=== PATIENT | female | born 1950 | race Caucasian/White ===

== ENCOUNTER 2017-06-06 12:03 | Observation (INO) | payer MEDICARE, BC ==
[2017-06-06 12:22] LABS: #Eosinphils 0.3 thou/uL (0.0-0.7); #Monocytes 0.6 thou/uL (0.11-0.59); #Neutrophils 5.5 thou/uL (1.40-6.50); %Basophils 0.5 % (0.0-1.0); %Eosinophils 4.6 % (0.0-10.0); %Lymphocytes 13.5 % (21.0-51.0); %Monocytes 7.8 % (0.0-10.0); Hematocrit 43.5 % (36.0-47.0); Red Blood Cell (RBC) Count 4.49 mill/uL (4.20-5.40); White Blood Cell (WBC) Count 7.5 thou/uL (4.8-10.8)
[2017-06-06 12:48] LABS: ALT (SGPT) 22 U/L (8-55); AST (SGOT) 20 U/L (5-34); Alkaline Phosphatase 80 U/L (40-150); Anion Gap 13 mmol/L (10-20); BUN (Urea Nitrogen) 27 mg/dL (9.8-20.1); Bilirubin, Total 1.4 mg/dL (0.2-1.2); CK (CPK) 58 U/L (29-168); Calc. Creatinine Clearance 0 mL/min (70-130); Calcium 9.6 mg/dL (7.8-10.44); Carbon Dioxide 30 mmol/L (23-31); Chloride 98 mmol/L (98-107); Estimated GFR-MDRD 70; Globulin 3.1 g/dL (2.4-3.5); Protein, Total 7.4 g/dL (6.0-8.3)
[2017-06-06 12:54] LABS: Troponin I Less than 0.010 ng/mL (< 0.028)
[2017-06-06] MEDS ORDERED: Ondansetron HCl/PF 4 MG/2 ML Vial IVP PRN ×2 (16:20→16:26)
[2017-06-06] MEDS ORDERED: Acetaminophen 325 MG TAB PO PRN ×2 (16:20→16:26)
[2017-06-06] MEDS ORDERED: Ondansetron ODT 4 MG TAB SL PRN (16:20)
[2017-06-06] MEDS ORDERED: Eucerin (Mineral Oil/Petrolatum,White) 30 gm Jar TOP PRN (16:26)
[2017-06-06] MEDS ORDERED: Nitroglycerin 0.4 MG TAB (25 Tab Bottle) SL PRN (16:26)
[2017-06-06] MEDS ORDERED: Loperamide HCl 2 MG CAP PO PRN (16:26)
[2017-06-06] MEDS ORDERED: Milk Of Magnesia 30 ML UDCUP PO PRN (16:26)
[2017-06-06] MEDS ORDERED: Ondansetron ODT 4 MG TAB PO PRN (16:26)
[2017-06-06] MEDS ORDERED: Artificial Tears 18 DROP/0.9 ML EA EYE PRN (16:26)
[2017-06-06] MEDS ORDERED: Sodium Chloride 0.65% Nasal 44 ML BOT EA NARE PRN (16:26)
[2017-06-06] MEDS ORDERED: Diabetic Tussin 200 MG/10 ML UDCUP PO PRN (16:26)
[2017-06-06] MEDS ORDERED: Senokot 8.6 MG TAB PO PRN (16:26)
[2017-06-06] MEDS ORDERED: Mag-Al 1200 mg/1200 mg/30 ML UDCUP PO PRN (16:26)
[2017-06-06] MEDS ORDERED: Loratadine 10 MG TAB PO PRN (16:26)
[2017-06-06] MEDS ORDERED: Zolpidem Tartrate 5 MG TAB PO PRN (16:26)
[2017-06-06 16:27] VITALS: BMI 27.4
--- NOTE | 2017-06-06 16:27 | HP ---
PRIMARY CARE PHYSICIAN: Dr. Fatimah Bueno. REASON FOR ADMISSION: Palpitations frequent PVC. HISTORY OF PRESENT ILLNESS: A 66-year-old female who has history of ventricular arrhythmia. She came to the emergency room for complaint of palpitation. Patient reports that for the last 5 days, she is feeling increasing palpitations. She is feeling near syncopal episode with walking. She is able to experience her fluttering sensation in her heart. She was also experiencing associated difficulty breathing and vague chest discomfort. The patient denies any angina. Patient denies any loss of consciousness. She denies any fall. She denies any trauma. She denies any orthopnea, PND or leg swelling. Patient reports that whenever she was checking her pulse at home with a blood pressure machine. At that time, her pulse was running in the 40s, but at the same time, she was also feeling her skipped beats. Her blood pressure was remaining normal. Lately, patient lost almost 25 pounds intentionally with diet and exercise. She denies any fever or chills. She denies any constipation , diarrhea or UTI symptoms. She denies any headache. The patient reports that she has history of frequent PVCs and ventricular arrhythmia and that is why she required ablation by Dr. Mitchell in [place]. Patient is following Dr. Quezada 5 months ago[address] She saw Dr. Quezada, at that time everything was fine, but symptoms started 5 days ago. She denies any caffeinated product. REVIEW OF SYSTEMS: The following complete review of systems was negative, unless otherwise mentioned in the HPI or below: CONSTITUTIONAL: Weight loss or gain, ability to conduct usual activities. SKIN: Rash, itching. EYES: Double vision, pain. ENT/MOUTH: Nose bleeding, neck stiffness, pain, tenderness. CARDIOVASCULAR: Palpitations, dyspnea on exertion, orthopnea. RESPIRATORY: Shortness of breath, wheezing, cough, hemoptysis, fever or night sweats. GASTROINTESTINAL: Poor appetite, abdominal pain, heartburn, nausea, vomiting, constipation, or diarrhea. GENITOURINARY: Urgency, frequency, dysuria, nocturia. MUSCULOSKELETAL: Pain, swelling. NEUROLOGIC/PSYCHIATRIC: Anxiety, depression. ALLERGY/IMMUNOLOGIC: Skin rash, bleeding tendency. Please see my HPI for pertinent positives and negatives. All other review of systems reviewed and negative except as mentioned in the HPI. PAST MEDICAL HISTORY: Unspecified arrhythmia, hypertension, dyslipidemia, obesity. PAST SURGICAL HISTORY: Ablation for arrhythmia, gastric surgery for hiatal hernia, breast implants, toe surgery. PAST PSYCHIATRIC HISTORY: Anxiety and depression. CURRENT HOME MEDICATIONS: Pravastatin 80 mg p.o. at bedtime, estradiol 1 mg p.o. daily, Aldactone 25 mg p.o. daily, Prozac 40 mg p.o. daily, losartan 25 mg p.o. daily, [place] Thyroid one tablet daily, Coreg 6.25 mg twice daily. FAMILY HISTORY: No strong family history of premature coronary artery disease, stroke or cancer. SOCIAL HISTORY: Patient denies any tobacco, alcohol or drug abuse. ALLERGIES: CODEINE, SULFATE, INFLUENZA VACCINE. EMERGENCY ROOM COURSE: Reviewed. PHYSICAL EXAMINATION: VITAL SIGNS: Currently, blood pressure 134/80, pulse 72, respiratory rate 16, temperature 97.6, saturation 100% on room air. Weight 78.4 kilograms. GENERAL: Patient is currently alert, awake, no obvious acute distress. HEAD: Normocephalic, atraumatic. EYES: Pupils round, reactive to light. Extraocular muscle intact. ENT: Oropharynx within normal limits. Moist mucous membranes. No oral lesions. No pharyngeal erythema, no exudate. NECK: Supple. Range of motion is normal. No meningeal signs of irritation. LUNGS: Clear to auscultation without any rhonchi or rales. CARDIAC: S1, S2 regular without any murmur. ABDOMEN: Soft, bowel sounds present, nontender, nondistended. No organomegaly , no mass, no suprapubic tenderness. BACK: Unremarkable, no CVA tenderness. EXTREMITIES: Upper extremity: Passive movement of all joints are normal. Lower extremity: No edema. Good peripheral pulsation. SKIN: No skin rash. HEMATOLOGICAL: No lymphadenopathy. PSYCHIATRIC: Normal affect. SIGNIFICANT LABS: EKG based on my review, normal sinus rhythm. Frequent premature ventricular complexes, nonspecific ST-T changes. CBC: WBC 7.5, hemoglobin 14.8, platelet 295. BMP: Sodium 137, potassium 4.4, chloride 98, carbon dioxide 30, BUN 27, creatinine 0.81, calcium 9.6, AST 20, ALT 22, alkaline phosphatase 80. CK 58, CK-MB 1.6, troponin I less than 0.010, BNP 129.9, albumin 4.3. ASSESSMENT AND PLAN/IMPRESSION: 1. Palpitation. The patient's palpitation is most likely related with underlying frequent premature ventricular complexes. At this point, the patient is already on Coreg 6.25 mg twice daily, which we will continue while in hospital. We will do serial cardiac enzymes to rule out acute coronary syndrome. We will check thyroid function test. We will monitor on telemetry floor for any kind of arrhythmias. 2. Frequent premature ventricular complexes. Patient will continue beta marcio therapy. We will check magnesium level to rule out underlying ischemia. We will perform exercise Cardiolite stress test. We will consult Cardiology. We will obtain echocardiography. Meanwhile, we will continue with aspirin 325 mg p.o. daily. 3. History of cardiomyopathy. Currently, BNP is elevated. The patient is taking Lasix, Aldactone therapy. Currently, patient is euvolemic. We will obtain echocardiography to assess ejection fraction and other structural abnormality. 4. History of hypertension, currently well controlled. If blood pressure permits, then we will continue losartan 25 mg p.o. daily. 5. Dyslipidemia. We will check lipid profile tomorrow and continue pravastatin 80 mg p.o. at bedtime. 6. Anxiety and depression. We will continue Prozac 40 mg p.o. daily. 7. Near syncope/dizziness likely related with symptomatic premature ventricular complexes and arrhythmia. We will monitor on telemetry floor. We are obtaining an echocardiography. We are ruling out acute coronary syndrome and will also do stress test for ischemic workup. Cardiology will be consulted. We will monitor on telemetry floor. 8. Deep venous thrombosis prophylaxis not needed because we are expecting discharge in 24 hours. 9. Gastrointestinal prophylaxis, Pepcid 20 mg p.o. b.i.d. 10. CODE STATUS: The patient is FULL CODE. Patient does not have any surrogate decision maker. Disposition plan based on clinical course, likely 24 hours. Plan of care discussed with the patient and family member at bedside in the emergency room. YOUNG
[2017-06-06 17:14] LABS: Troponin I 0.019 ng/mL (< 0.028)
--- NOTE | 2017-06-06 19:23 | RAD ---
PORTABLE CHEST: 06/06/17 HISTORY: Heart palpitation and difficulty breathing. COMPARISON: 01/06/16. FINDINGS: The lungs are clear. No evidence of infiltrate or vascular congestion. Heart size is upper normal. IMPRESSION: No acute lung process. POS: [facility]
[2017-06-06 19:28] LABS: Troponin I 0.014 ng/mL (< 0.028)
[2017-06-06] MEDS: Pravastatin Sodium 40 MG TAB PO SCH (21:03)
[2017-06-06] MEDS: Losartan Potassium 25 MG TAB PO SCH (21:03)
[2017-06-06] MEDS: Famotidine 20 MG TAB PO SCH (21:03)
[2017-06-06] MEDS: FLUoxetine HCl 20 MG CAP PO SCH (21:04)
[2017-06-07] MEDS ORDERED: Aspirin 325 MG TAB PO SCH (09:00)
[2017-06-07] MEDS: Famotidine 20 MG TAB PO SCH ×2 (09:49→20:44)
[2017-06-07] MEDS: Spironolactone 25 MG TAB PO SCH (09:49)
[2017-06-07] MEDS: Estradiol 1 MG TAB PO SCH (09:49)
--- NOTE | 2017-06-07 18:05 | PDOC.PN ---
- Subjective Encounter Start Date: 06/07/17 Encounter Start Time: 15:00 Patient seen and examined. No new complaints. No overnight events. Palpitations intermittent - improving. - Objective Resuscitation Status: Resuscitation Status FULL:Full Resuscitation MAR Reviewed: Yes Vital Signs & Weight: Vital Signs (12 hours) Temp Pulse Resp BP Pulse Ox 06/07/17 15:15 97.7 F 61 16 111/66 93 L 06/07/17 11:05 98.6 F 56 L 16 117/72 98 06/07/17 07:55 97.7 F 73 14 06/07/17 07:38 97.4 F L 60 16 104/71 96 Weight Weight 175 lb 6.4 oz I&O: 06/06/17 06/07/17 06/08/17 06:59 06:59 06:59 Intake Total 850 Balance 850 Result Diagrams: 06/06/17 12:13 06/06/17 12:13 EKG Reviewed by me: Yes (Tele SR/PVCs) Phys Exam - Physical Examination Constitutional: NAD Respiratory: no wheezing, no rhonchi Cardiovascular: RRR, no rub Gastrointestinal: soft, non-tender, positive bowel sounds Musculoskeletal: no edema Neurological: non-focal, moves all 4 limbs Dx/Plan (1) Palpitations Code(s): R00.2 - PALPITATIONS Status: Acute (2) Nonischemic cardiomyopathy Code(s): I42.8 - OTHER CARDIOMYOPATHIES Status: Chronic (3) Chronic systolic (congestive) heart failure Code(s): I50.22 - CHRONIC SYSTOLIC (CONGESTIVE) HEART FAILURE Status: Chronic (4) HTN (hypertension) Code(s): I10 - ESSENTIAL (PRIMARY) HYPERTENSION Status: Chronic (5) Dyslipidemia Code(s): E78.5 - HYPERLIPIDEMIA, UNSPECIFIED Status: Acute (6) Other issues per previous notes - Plan cont current plan of care, DVT proph w/SCDs * Await Echo/EP input * Patient is at risk of life threatening arrhythmias due to history of cardiomyopathy. * Cont current meds as below * Cont to monitor * DC home once cleared by EP Review of Systems - Review of Systems Respiratory: negative: Cough, Dry, Shortness of Breath, Hemoptysis, SOB with Excertion, Pleuritic Pain, Sputum, Wheezing Cardiovascular: negative: Chest Pain, Palpitations, Orthopnea, Paroxysmal Noc. Dyspnea, Edema, Light Headedness, Other Gastrointestinal: negative: Nausea, Vomiting, Abdominal Pain, Diarrhea, Constipation, Melena, Hematochezia, Other - Medications/Allergies Allergies/Adverse Reactions: Allergies Allergy/AdvReac Type Severity Reaction Status Date / Time codeine Allergy Nausea Verified 12/30/15 13:23 influenza virus vaccine ts Allergy Verified 12/30/15 17:13 [From Fluarix] Medications: Current Medications Acetaminophen (Tylenol) 650 mg PO Q4H PRN PRN Reason: Headache/Fever or Pain Al Hydroxide/Mg Hydroxide (Maalox) 30 ml PO Q6H PRN PRN Reason: Heartburn or Indigestion Artificial Tears (Tears Naturale) 0 drop EA EYE PRN PRN PRN Reason: Dry Eyes Aspirin (Ecotrin) 81 mg PO DAILY [facility] Estradiol (Estrace) 1 mg PO DAILY [facility] Last Admin: 06/07/17 09:49 Dose: 1 mg Famotidine (Pepcid) 20 mg PO BID [facility] Last Admin: 06/07/17 09:49 Dose: 20 mg Flecainide Acetate (Tambocor) 100 mg PO Q12HR [facility] Flecainide Acetate (Tambocor) 100 mg PO 1900 [facility] Stop: 06/07/17 21:00 Fluoxetine HCl (Prozac) 40 mg PO DAILY [facility] Last Admin: 06/06/17 21:04 Dose: 40 mg Guaifenesin (Robitussin Sf) 200 mg PO Q4H PRN PRN Reason: Cough Hydralazine HCl (Apresoline) 10 mg SLOW IVP Q4H PRN PRN Reason: Systolic BP > 180 Loperamide HCl (Imodium) 2 mg PO PRN PRN PRN Reason: Diarrhea/Loose Stools Loratadine (Claritin) 10 mg PO DAILYPRN PRN PRN Reason: Sinus Symptoms Losartan Potassium (Cozaar) 25 mg PO DAILY [facility] Last Admin: 06/06/17 21:03 Dose: 25 mg Magnesium Hydroxide (Milk Of Magnesium) 30 ml PO DAILYPRN PRN PRN Reason: Constipation Mineral Oil/White Petrolatum (Eucerin Cream) 0 gm TOP BIDPRN PRN PRN Reason: Dry Skin Nitroglycerin (Nitrostat) 0.4 mg SL Q5MIN PRN PRN Reason: Chest Pain Ondansetron HCl (Zofran Odt) 4 mg PO Q6H PRN PRN Reason: Nausea/Vomiting Ondansetron HCl (Zofran) 4 mg IVP Q6H PRN PRN Reason: Nausea/Vomiting Pravastatin Sodium (Pravachol) 80 mg PO [facility] Last Admin: 06/06/17 21:03 Dose: 80 mg Senna (Senokot) 2 tab PO HSPRN PRN PRN Reason: Constipation Sodium Chloride ([place] Nasal [place] 0.65%) 0 ml EA NARE QIDPRN PRN PRN Reason: Nasal Congestion Spironolactone (Aldactone) 25 mg PO QA-[facility] Last Admin: 06/07/17 09:49 Dose: 25 mg Zolpidem Tartrate (Ambien) 5 mg PO HSPRN PRN PRN Reason: Insomnia
[2017-06-07] MEDS: Pravastatin Sodium 40 MG TAB PO SCH (20:44)
--- NOTE | 2017-06-08 06:12 | CON ---
ELECTROPHYSIOLOGY CONSULTATION REPORT DATE OF CONSULTATION: 06/07/2017 REFERRING PHYSICIANS: Dr. Lawson and Dr. Quezada. I am seeing Ms. Mitchell at our [facility] telemetry floor as an electrophysiology consultan t. Her problems are: 1. Highly symptomatic PVCs. A. Presentation with near syncopal spells and bigeminy and trigeminy PVCs documented at telemetry. B. Monomorphic PVCs on the EKG shows bigeminy with a right bundle left axis in morphology. 2. Prior history of PVCs, status post mitral annular PVC ablation by Dr. Troy in 05/2013, four s years ago. At that point, a different morphology with the inferior axis was seen. 3. Prior history of cardiomyopathy thought to be related to the frequent PVCs, but LVEF has normali zed on the echocardiogram mostly seen in 10/2015 with LVEF of 55%. No significant valvular heart di sease. A. Left heart catheterization on 08/2012 reveals normal coronary arteries. LVEF at that time was 3 0% to 35% and again normalized at a later date. 4. Coronary artery risk factors including hyperlipidemia and hypertension. ALLERGIES: CODEINE and INFLUENZA VIRUS VACCINE. HOME MEDICATIONS: Included pravastatin 80 mg a day, estradiol, spironolactone 25 mg daily, fluoxeti ne, losartan, Nature-Throid 48.75 mg and carvedilol 6.25 mg. SUBJECTIVE: Ms. Mitchell is here with symptoms of recurrent palpitations. She says it started on about a week ago. She has intermittent palpitations that eventually made her so dizzy and h ad to lay down. She nearly passed out according to her, but there is no full loss of consciousness. She denied any chest pain associated with this. No significant dizziness, no loss of consciousnes s noted. No fever, chills or cough. No stroke-like symptoms, no other intercurrent illnesses are d ocumented. Rest of the 12-point review of systems otherwise unremarkable. PAST MEDICAL HISTORY: As above. SOCIAL HISTORY: Patient denies smoking, EtOH or drug abuse. FAMILY HISTORY: Noncontributory. OBJECTIVE DATA: VITAL SIGNS: Blood pressure is 111/66, heart rate 61, respirations 16 and temperature 97.7 degrees Fahrenheit. GENERAL: She is an alert and oriented woman in no apparent distress. NECK: Supple. Jugular veins not distended. CHEST: Coarse without crackles. CARDIOVASCULAR: Heart sounds are regular to rate and rhythm. No murmur or gallop. ABDOMEN: Benign. Bowel sounds positive. EXTREMITIES: Lower extremities without edema, clubbing or cyanosis. Pulses adequate. NEUROLOGIC: Patient is nonfocal. MUSCULOSKELETAL: No joint swelling or deformities. SKIN: Without rash. DATABASE: EKG today reveals sinus rhythm with bigeminy and PVCs documented, which are monomorphic, right bundle left axis in morphology. The chest x-ray was negative. Telemetry shows bigeminy and t rigeminy, now decreasing in frequency. ASSESSMENT AND PLAN: Ms. Mitchell is a pleasant 66-year-old woman with a prior history of cardiomyop athy, left ventricular ejection fraction was reduced at 30% to 35% by catheterization in 2012, but m ore recently in 2016, her left ventricular ejection fraction has normalized. She never had a histor y of coronary artery disease. She is now presenting with recurrent palpitations, correlating to big eminy and trigeminy premature ventricular complexes. She is highly symptomatic with that. I discussed the treatment options. Increasing beta-marcio or calcium channel blockers are likely n ot an option as blood pressure is in the borderline. On the other hand, adding an antiarrhythmic ag ent like flecainide could be a reasonable consideration. I will schedule for that. Also, we could consider a repeat radiofrequency ablation for PVCs. These were discussed with her; she will monitor her for initiation of the antiarrhythmic regimen. I will follow with you. Thank you again for allowing me to participate in the care of this patient.
[2017-06-08] MEDS ORDERED: Aspirin 81 mg Enteric Coated Tablet PO SCH (09:00)
[2017-06-08] MEDS: Estradiol 1 MG TAB PO SCH (10:03)
[2017-06-08] MEDS: Spironolactone 25 MG TAB PO SCH (10:03)
[2017-06-08] MEDS: Famotidine 20 MG TAB PO SCH (10:03)
[2017-06-08] MEDS: Losartan Potassium 25 MG TAB PO SCH (10:04)
[2017-06-08] MEDS: FLUoxetine HCl 20 MG CAP PO SCH (10:04)
[2017-06-08] MEDS ORDERED: Carvedilol 3.125 MG TAB PO SCH (11:45)
--- NOTE | 2017-06-08 13:34 | DIS ---
DATE OF DISCHARGE: 06/08/2017 DISCHARGE DISPOSITION: Home. FOLLOWUP: 1. Follow up with primary care physician, Dr. Bueno in 1 week. 2. Follow up with Cardiology, Dr. Quezada and Electrophysiology, Dr. Mercado in 1 week. Event monitor will be arranged by Electrophysiology. ALLERGIES: Patient is allergic to CODEINE and INFLUENZA VACCINE. DISCHARGE MEDICATIONS: Pravastatin 80 mg at bedtime, calcium 1000 mg b.i.d., Coreg 3.125 mg b.i.d., vitamin D3 2000 units daily, estradiol 1 mg daily, fluoxetine 40 mg at bedtime, flecainide 100 mg b .i.d. (new medication). Please note that Coreg dose was reduced to 3.125 b.i.d. Losartan 25 mg at bedtime, Aldactone 25 mg daily, thyroid (pork) 48.75 mg daily. INPATIENT CONSULTANTS: 1. Cardiology, Dr. Quezada. 2. Electrophysiology, Dr. Mercado. BRIEF HOSPITAL COURSE: Patient is a 66-year-old female with nonischemic cardiomyopathy, hypertensio n, and dyslipidemia, who presented to the hospital with palpitations. Please refer to the history a nd physical for further details. The patient was admitted to the hospital with a diagnosis of palpitations of unclear etiology. Tamara ent was evaluated by Cardiology and Electrophysiology. Repeat echocardiogram has been done and repo rt is pending at this time. Patient will be discharged later today once cleared by Cardiology and E lectrophysiology. Flecainide was started due to frequent PVCs. Coreg dose was reduced to 3.125 b.i .d. An event monitor will be arranged per Electrophysiology. SIGNIFICANT LABORATORY DATA: Fasting lipid showed triglyceride 184, cholesterol 166, HDL of 58, LDL 71. CBC showed WBC 7.5 with hemoglobin 14.8. Creatinine was 0.81, magnesium was 2.1. TSH was 1.4 8. FINAL DIAGNOSES: 1. Palpitations secondary to arrhythmias. The patient had frequent premature ventricular contracti ons on the monitor. 2. Nonischemic cardiomyopathy. 3. Chronic systolic heart failure. 4. Hypertension. 5. Dyslipidemia. 6. Hypothyroidism. 7. History of ablation for arrhythmias in the past. Plan of care was discussed with the patient. She stated understanding.
[2017-06-08 16:16] VITALS: BP 127/80; TEMP 97.6
--- NOTE | 2017-06-12 13:16 | EKG ---
Test Reason : Blood Pressure : / mmHG Vent. Rate : 069 BPM Atrial Rate : 069 BPM P-R Int : 176 ms QRS Dur : 104 ms QT Int : 444 ms P-R-T Axes : 067 030 104 degrees QTc Int : 475 ms Normal sinus rhythm Non-specific intra-ventricular conduction delay Prolonged QT Abnormal ECG Confirmed by SEGUNDO HOFFMAN ([id number]) on 06/12/2017 1:16:04 PM Referred By: CATHY Confirmed By:SEGUNDO HOFFMAN
== END 2017-06-08 17:09 | disposition home or self-care (01) ==
LOC: ERS 12:03 → 2SW 16:15
PROVIDERS: ADMIT Internal Medicine; ATTEND Internal Medicine
DX: I49.9 Cardiac arrhythmia, unspecified (principal); R00.2 Palpitations; I42.8 Other cardiomyopathies; I11.0 Hypertensive heart disease with heart failure; I50.22 Chronic systolic (congestive) heart failure; E78.5 Hyperlipidemia, unspecified; E03.9 Hypothyroidism, unspecified; Z88.7 Allergy status to serum and vaccine; Z88.5 Allergy status to narcotic agent; Z79.899 Other long term (current) drug therapy; Z98.890 Other specified postprocedural states
CPT/HCPCS: 71010; 80061; 82550; 82553; 83735; 83880; 84484 ×2; 93005 ×2; 93306; 99285; G0378; 36415; 80053; 84443; 85025; 93010

== ENCOUNTER 2018-01-04 06:25 | Day surgery (SDC) | payer MEDICARE, BC ==
[2018-01-03 16:29] VITALS: BMI 29.1
[2018-01-04 08:09] LABS: #Eosinphils 0.4 thou/uL (0.0-0.7); #Lymphocytes 0.8 thou/uL (1.20-3.40); #Monocytes 0.6 thou/uL (0.11-0.59); %Basophils 0.7 % (0.0-1.0); %Eosinophils 6.2 % (0.0-10.0); %Lymphocytes 14.5 % (21.0-51.0); %Monocytes 10.2 % (0.0-10.0); %Neutrophils 68.4 % (42.0-75.0); Hemoglobin 13.3 g/dL (12.0-16.0); Mean Corpuscular Volume 94.2 fl (81.0-99.0); Mean Platelet Volume 7.2 fL (7.4-10.4); Platelet Count 291 thou/uL (130-400); RBC Distribution Width 11.7 % (11.5-14.5); Red Blood Cell (RBC) Count 4.15 mill/uL (4.20-5.40); White Blood Cell (WBC) Count 5.8 thou/uL (4.8-10.8)
[2018-01-04 08:20] LABS: INR-International Normal Ratio 2.6; PTT 42.9 SEC (22.9-36.1); Prothrombin Time 28.5 SEC (12.0-14.7)
[2018-01-04 08:31] LABS: Anion Gap 11 mmol/L (10-20); BUN (Urea Nitrogen) 16 mg/dL (9.8-20.1); Calc. Creatinine Clearance 84 mL/min (70-130); Calcium 8.9 mg/dL (7.8-10.44); Carbon Dioxide 29 mmol/L (23-31); Chloride 102 mmol/L (98-107); Estimated GFR-MDRD 67; Glucose 101 mg/dL (80-115); Potassium 4.8 mmol/L (3.5-5.1); Sodium 137 mmol/L (136-145)
[2018-01-04] MEDS ORDERED: PROPOFOL 200 MG/20 ML VIAL ONE (09:51)
--- NOTE | 2018-01-04 14:51 | OP ---
REFERRING PHYSICIAN: Foreign Quezada M.D. REASON FOR PROCEDURE: Ms. Mitchell presenting with possibly atypical flutter. She also exhibits poss ible typical atrial flutter this morning in EKG as well. She is here for a cardioversion. She is o n flecainide and recently started on Xarelto. LANETTE today demonstrates no abnormalities. PROCEDURE: The patient received propofol from an anesthesia specialist. After adequate sedation ach ieved, a synchronized 100 joule shock promptly converted the patient back to sinus rhythm. CONCLUSION: Successful cardioversion. PLAN: Continue current regimen, consider ablation at a later date.
--- NOTE | 2018-01-04 18:40 | ECHO ---
REASON FOR PROCEDURE: The patient is a pleasant 67-year-old woman with prior history of symptomatic PVCs, now presenting wi th atypical atrial flutter/coarse fibrillation. She was placed on flecainide. This mornings EKG thou gh could be consistent with a more typical atrial flutter. Here for LANETTE guided cardioversion. PROCEDURE: The patient received propofol per Anesthesia specialist. After adequate level of sedation achieved, a standard transesophageal echocardiogram probe was passed into the esophagus without difficulty. Randall fei tolerated procedure well, no complication noted. RESULTS: The left atrium is mildly enlargement 4.5 cm in horizontal diameter. Left atrial appendage visualized and contains no clots. Left atrial appendage velocities up to 50 cm per second. Four out of four pulmonary veins are well seen. The mitral valve has mild regurgitation. Left ventricular systolic function appears preserved with normal left ventricular systolic function i s seen. The left ventricular wall thickness is normal. Left ventricular size is normal. Right-sided chambers nondilated. The interatrial and intraventricular septum is free of defect. The aortic valve has three leaflets without regurgitation or stenosis. Tricuspid valve regurgitation not visualized. Pulmonary valve was no regurgitant. The pericardial space without effusion. The visualized portion of the ascending and descending aorta without aneurysm, dissection or signifi cant atheroma. CONCLUSION: 1. Normal left ventricular systolic function. 2. No intracardiac clots visualized. 3. Mild mitral regurgitation, mild left atrial enlargement. No other significant structural abnorma lity seen. PLAN: Proceed with cardioversion.
--- NOTE | 2018-01-08 18:34 | EKG ---
Test Reason : PREOP Blood Pressure : / mmHG Vent. Rate : 089 BPM Atrial Rate : 089 BPM P-R Int : 182 ms QRS Dur : 134 ms QT Int : 410 ms P-R-T Axes : 085 -27 134 degrees QTc Int : 498 ms Sinus rhythm with frequent Premature ventricular complexes Non-specific intra-ventricular conduction block T wave abnormality, consider lateral ischemia Abnormal ECG When compared with ECG of 08-JUN-2017 13:16, Premature ventricular complexes are now Present Non-specific intra-ventricular conduction block has replaced Incomplete left bundle branch block Nonspecific T wave abnormality, worse in Inferior leads Confirmed by PETR MONTEZ (2) on 01/08/2018 6:34:05 PM Referred By: CHANELLE Confirmed By:PETR MONTEZ
--- NOTE | 2018-01-08 18:34 | EKG ---
Test Reason : POST LANETTE/CARDIOVERSI Blood Pressure : / mmHG Vent. Rate : 070 BPM Atrial Rate : 070 BPM P-R Int : 208 ms QRS Dur : 126 ms QT Int : 500 ms P-R-T Axes : 071 -03 099 degrees QTc Int : 540 ms Normal sinus rhythm Non-specific intra-ventricular conduction block T wave abnormality, consider lateral ischemia Abnormal ECG When compared with ECG of 04-JAN-2018 08:00, (Unconfirmed) Premature ventricular complexes are no longer Present Nonspecific T wave abnormality, improved in Inferior leads Confirmed by PETR MONTEZ (2) on 01/08/2018 6:34:27 PM Referred By: CHANELLE Confirmed By:PETR MONTEZ
== END 2018-01-04 10:25 | disposition home or self-care (01) ==
LOC: CCL 06:25
PROVIDERS: ATTEND Internal Medicine Cardiovascular Disease
PROC: 5A2204Z Restoration of Cardiac Rhythm, Single (ICD-10-PCS; principal; 2018-01-04)
PROC: B246ZZ4 Ultrasonography of Right and Left Heart, Transesophageal (ICD-10-PCS; 2018-01-04)
DX: I48.4 Atypical atrial flutter (principal); I10 Essential (primary) hypertension; E78.5 Hyperlipidemia, unspecified; Z88.5 Allergy status to narcotic agent; Z88.7 Allergy status to serum and vaccine; Z79.82 Long term (current) use of aspirin; Z79.01 Long term (current) use of anticoagulants; Z79.899 Other long term (current) drug therapy
CPT/HCPCS: 36415; 80048; 85025; 85610; 85730; 92960; 93005; 93010; 93312; J2704

== ENCOUNTER 2018-07-09 09:58 | Outpatient (CLI) | payer MEDICARE, BC | END 2018-07-09 09:59 | disposition home or self-care (01) | LOC: BICMAMMO 09:58 | PROVIDERS: ATTEND Family Medicine | DX: Z12.31 Encounter for screening mammogram for malignant neoplasm of breast (principal); R92.1 Mammographic calcification found on diagnostic imaging of breast | CPT/HCPCS: 77063; 77067 ==

== ENCOUNTER 2020-07-09 13:32 | Outpatient (CLI) | payer MEDICARE, BC ==
--- NOTE | 2020-07-09 14:06 | MMO ---
Bilateral MAMMO Bilat Screen [facility]. CLINICAL HISTORY: Patient is 70 years old and is seen for screening. The patient has no family history of breast cancer. The patient has no personal history of cancer. The patient has a history of bilateral Implants in 1983. VIEWS: The views performed were: bilateral craniocaudal; bilateral mediolateral oblique; and bilateral Implant displaced with tomosynthesis. FILMS COMPARED: The present examination has been compared to prior imaging studies performed at [facility] on 04/11/2007, 07/05/2017 and 07/09/2018, and at [facility] on 08/03/2004. This study has been interpreted with the assistance of computer-aided detection. MAMMOGRAM FINDINGS: There are scattered fibroglandular densities. There are stable benign appearing calcifications seen in both breasts. There are no suspicious masses, suspicious calcifications, or new areas of architectural distortion. IMPRESSION: THERE IS NO MAMMOGRAPHIC EVIDENCE OF MALIGNANCY. A ROUTINE FOLLOW-UP MAMMOGRAM IN 1 YEAR IS RECOMMENDED. THE RESULTS OF THIS EXAM WERE SENT TO THE PATIENT. ACR BI-RADS Category 2 - Benign finding MAMMOGRAPHY NOTE: 1. A negative mammogram report should not delay a biopsy if a dominant of clinically suspicious mass is present. 2. Approximately 10% to 15% of breast cancers are not detected by mammography. 3. Adenosis and dense breasts may obscure an underlying neoplasm. Reported by: STACEY WILKERSON MD Electonically Signed: [id number]
== END 2020-07-09 13:33 | disposition home or self-care (01) ==
LOC: BICMAMMO 13:32
PROVIDERS: ATTEND Family Medicine
DX: Z12.31 Encounter for screening mammogram for malignant neoplasm of breast (principal); Z98.82 Breast implant status
CPT/HCPCS: 77063; 77067

== ENCOUNTER 2020-12-07 08:07 | Outpatient (CLI) | payer MEDICARE, BC | END 2020-12-07 08:08 | disposition home or self-care (01) | LOC: BICMAMMO 08:07 | PROVIDERS: ATTEND Family Medicine | DX: N63.10 Unspecified lump in the right breast, unspecified quadrant (principal); Z13.820 Encounter for screening for osteoporosis; M81.0 Age-related osteoporosis without current pathological fracture; M85.88 Other specified disorders of bone density and structure, other site; Z78.0 Asymptomatic menopausal state; R92.8 Other abnormal and inconclusive findings on diagnostic imaging of breast | CPT/HCPCS: 76642; 77065; 77080; G0279 ==

== ENCOUNTER 2022-06-23 09:35 | Outpatient (CLI) | payer MEDICARE, BC | END 2022-06-23 09:36 | disposition home or self-care (01) | LOC: BICMAMMO 09:35 | PROVIDERS: ATTEND Family Medicine | DX: M81.0 Age-related osteoporosis without current pathological fracture (principal) | CPT/HCPCS: 77080 ==

== ENCOUNTER 2022-09-20 08:44 | Day surgery (SDC) | payer MEDICARE, BC ==
[2022-09-19 11:31] VITALS: BMI 28.1
[2022-09-20] MEDS ORDERED: Lidocaine 1% PF 5 ML VIAL ONE (11:13)
[2022-09-20] MEDS ORDERED: PROPOFOL 200 MG/20 ML VIAL ONE (11:13)
== END 2022-09-20 12:50 | disposition home or self-care (01) ==
LOC: SDC 08:44
PROVIDERS: ATTEND Internal Medicine Gastroenterology
PROC: 0DJD8ZZ Inspection of Lower Intestinal Tract, Via Natural or Artificial Opening Endoscopic (ICD-10-PCS; principal; 2022-09-20)
DX: Z12.11 Encounter for screening for malignant neoplasm of colon (principal); K57.30 Diverticulosis of large intestine without perforation or abscess without bleeding; K64.8 Other hemorrhoids; K62.89 Other specified diseases of anus and rectum; I48.91 Unspecified atrial fibrillation; I11.0 Hypertensive heart disease with heart failure; I50.9 Heart failure, unspecified; Z86.010 Personal history of colon polyps; Z80.0 Family history of malignant neoplasm of digestive organs; Z79.01 Long term (current) use of anticoagulants; Z79.82 Long term (current) use of aspirin; Z79.83 Long term (current) use of bisphosphonates; Z79.84 Long term (current) use of oral hypoglycemic drugs; Z79.899 Other long term (current) drug therapy; Z88.5 Allergy status to narcotic agent; Z95.810 Presence of automatic (implantable) cardiac defibrillator
CPT/HCPCS: J2704

== ENCOUNTER 2022-12-08 10:44 | Outpatient (CLI) | payer MEDICARE, BC | END 2022-12-08 10:45 | disposition home or self-care (01) | LOC: BICRAD 10:44 | PROVIDERS: ATTEND Family Medicine | DX: M25.562 Pain in left knee (principal); G89.29 Other chronic pain; M17.12 Unilateral primary osteoarthritis, left knee ==

== ENCOUNTER 2024-08-06 10:28 | Outpatient (CLI) | payer MEDICARE | END 2024-08-06 10:29 | disposition home or self-care (01) | LOC: BICMAMMO 10:28 | PROVIDERS: ATTEND Family Medicine | DX: Z12.31 Encounter for screening mammogram for malignant neoplasm of breast (principal); Z98.82 Breast implant status | CPT/HCPCS: 77063; 77067 ==

== ENCOUNTER 2024-08-19 10:04 | Outpatient (CLI) | payer MEDICARE | END 2024-08-19 10:05 | disposition home or self-care (01) | LOC: BICMAMMO 10:04 | PROVIDERS: ATTEND Family Medicine | DX: Z78.0 Asymptomatic menopausal state (principal); M81.0 Age-related osteoporosis without current pathological fracture | CPT/HCPCS: 77080 ==

== ENCOUNTER → 2025-02-18 | Day surgery (SDC) | payer MEDICARE ==
[2025-02-05 12:31] VITALS: BMI 25.9
[~2025-02-18] MED LIST: Furosemide 20 MG (2 mL) VIAL ONE; Glycopyrrolate 0.2 MG/ML 5 ML SYRINGE ONE; Heparin 10,000 UNITS/ 10 ML VIAL ONE; Isoproterenol 0.2 MG/1 ML AMP ONE; Lidocaine 1% PF 5 ML VIAL ONE; Nitroglycerin 50 MG/250 ML BOT 250 ML ONE; Ondansetron PF 4 MG/2 ML Vial ONE; PHENYLEPHRINE-NS 100 MCG/ML 10 ML SYRINGE ONE; Rocuronium Bromide 10 MG/ML (10ML VIAL) ONE; SUGAMMADEX SODIUM 200 MG/2 ML VIAL ONE
[2025-02-18 11:42] LABS: INR-International Normal Ratio 1.2; Prothrombin Time 15.6 sec (12.0-14.7)
== END ==
LOC: SDC 08:56
PROVIDERS: ATTEND Internal Medicine Cardiovascular Disease
PROC: 4A023FZ Measurement of Cardiac Rhythm, Percutaneous Approach (ICD-10-PCS; principal; 2025-02-18)
PROC: 02583ZZ Destruction of Conduction Mechanism, Percutaneous Approach (ICD-10-PCS; 2025-02-18)
DX: I48.19 Other persistent atrial fibrillation (principal); I47.20 Ventricular tachycardia, unspecified; I49.3 Ventricular premature depolarization; I48.92 Unspecified atrial flutter; I11.0 Hypertensive heart disease with heart failure; I50.23 Acute on chronic systolic (congestive) heart failure; E78.5 Hyperlipidemia, unspecified; F32.A Depression, unspecified; Z95.810 Presence of automatic (implantable) cardiac defibrillator; Z90.710 Acquired absence of both cervix and uterus; Z90.89 Acquired absence of other organs; Z98.890 Other specified postprocedural states; Z88.8 Allergy status to other drugs, medicaments and biological substances; Z79.82 Long term (current) use of aspirin; Z79.01 Long term (current) use of anticoagulants; Z79.899 Other long term (current) drug therapy
CPT/HCPCS: 85610; 86850; 86900; 86901; 93656; C1730 ×2; C1733; C1759; C1760; C1766; C1769; C1893; J1644 ×2; J1940; J2720; J3010; 85347; 93623; 93655; 93657; C1894; J1100; J2405

== ENCOUNTER 2025-04-14 10:27 | Inpatient (IN) | payer MEDICARE ==
[2025-04-14] MEDS ORDERED: Acetaminophen 500 MG TAB ONE (12:20)
[2025-04-14] MEDS ORDERED: Boostrix 0.5 ML (Tdap) VIAL (>/=7 yrs of age) ONE (12:22)
[2025-04-14 12:24] LABS: #Basophils 0.06 10x3/uL (0.0-0.2); #Eosinophils 0.34 10x3/uL (0.0-0.7); #Monocytes 0.68 10x3/uL (0.11-0.59); #Neutrophils 6.88 10x3/uL (1.40-6.50); %Basophils 0.7 % (0.0-1.0); %Eosinophils 3.9 % (0.0-10.0); %Lymphocytes 9.2 % (21.0-51.0); %Monocytes 7.7 % (0.0-10.0); %Neutrophils 78.3 % (42.0-75.0); Hematocrit 45.0 % (36.0-47.0); Hemoglobin 14.2 g/dL (12.0-16.0); Mean Corpuscular Hemoglobin 27.8 pg (27.0-31.0); Mean Corpuscular Volume 88.1 fL (78.0-98.0); Platelet Count 307 10x3/uL (130-400); Red Blood Cell (RBC) Count 5.11 mill/uL (4.20-5.40); White Blood Cell (WBC) Count 8.79 10x3/uL (4.8-10.8)
[2025-04-14] MEDS ORDERED: Etomidate 40 MG (20 mL) VIAL ONE (12:36)
[2025-04-14 12:49] LABS: ALT (SGPT) 12 U/L (Less than 34); AST (SGOT) 24 U/L (11-34); Albumin 4.1 g/dL (3.1-4.5); Alkaline Phosphatase 47 U/L (40-110); Anion Gap 15 mmol/L (10-20); BUN (Urea Nitrogen) 26 mg/dL (9.8-20.1); Bilirubin, Total 0.8 mg/dL (0.3-1.2); Calc. Creatinine Clearance 0 mL/min (70-130); Calcium 9.1 mg/dL (7.8-10.44); Carbon Dioxide 27 mmol/L (23-31); Chloride 104 mmol/L (98-107); Globulin 2.7 g/dL (2.4-3.5); Glucose 96 mg/dL (83-110); Potassium 3.9 mmol/L (3.5-5.1); Sodium 142 mmol/L (136-145)
[2025-04-14 12:51] LABS: INR-International Normal Ratio 3.1; Prothrombin Time 32.0 sec (12.0-14.7)
[2025-04-14 13:12] LABS: PTT 40.9 sec (22.9-36.1)
[2025-04-14] MEDS ORDERED: Ondansetron PF 4 MG/2 ML Vial IVP PRN (17:16)
[2025-04-14 19:24] VITALS: BMI 26.7
[2025-04-14] MEDS: Famotidine 20 MG TAB PO SCH (21:18)
[2025-04-15] MEDS: Mupirocin 1 GM TUBE NASAL DECOLONIZATION TP SCH (02:45)
[2025-04-15 06:09] LABS: #Basophils 0.05 10x3/uL (0.0-0.2); #Eosinophils 0.36 10x3/uL (0.0-0.7); #Monocytes 0.78 10x3/uL (0.11-0.59); #Neutrophils 5.02 10x3/uL (1.40-6.50); %Basophils 0.7 % (0.0-1.0); %Eosinophils 4.9 % (0.0-10.0); %Lymphocytes 14.8 % (21.0-51.0); %Monocytes 10.7 % (0.0-10.0); %Neutrophils 68.6 % (42.0-75.0); Hematocrit 44.8 % (36.0-47.0); Hemoglobin 13.6 g/dL (12.0-16.0); Mean Corpuscular Hemoglobin 27.3 pg (27.0-31.0); Mean Corpuscular Volume 89.8 fL (78.0-98.0); Platelet Count 268 10x3/uL (130-400); Red Blood Cell (RBC) Count 4.99 mill/uL (4.20-5.40); White Blood Cell (WBC) Count 7.31 10x3/uL (4.8-10.8)
[2025-04-15 06:32] LABS: ALT (SGPT) 11 U/L (Less than 34); AST (SGOT) 21 U/L (11-34); Albumin 3.7 g/dL (3.1-4.5); Alkaline Phosphatase 43 U/L (40-110); Anion Gap 14 mmol/L (10-20); BUN (Urea Nitrogen) 22 mg/dL (9.8-20.1); Bilirubin, Total 1.3 mg/dL (0.3-1.2); Calc. Creatinine Clearance 75 mL/min (70-130); Calcium 8.9 mg/dL (7.8-10.44); Carbon Dioxide 29 mmol/L (23-31); Chloride 104 mmol/L (98-107); Globulin 2.3 g/dL (2.4-3.5); Glucose 100 mg/dL (83-110); Magnesium 2.1 mg/dL (1.6-2.6); Potassium 4.6 mmol/L (3.5-5.1); Sodium 142 mmol/L (136-145)
[2025-04-15] MEDS: Metoprolol Succinate XL 25 MG ER.TAB PO SCH (08:18)
[2025-04-15] MEDS: Aspirin 81 mg Enteric Coated Tablet PO SCH (08:18)
[2025-04-15] MEDS: Acetaminophen 500 MG TAB PO PRN (08:18)
[2025-04-15] MEDS: Dapagliflozin Propanediol 10 MG TAB PO SCH (08:18)
[2025-04-15] MEDS: Mupirocin 1 GM TUBE NASAL DECOLOIZATION TP SCH (08:19)
[2025-04-15] MEDS ORDERED: Non-Formulary Item 1 EACH (Rivaroxaban [Xarelto] 20 MG Tablet) PO SCH (09:00)
[2025-04-15] MEDS ORDERED: Communication Order-Pharmacy FS SCH (15:30)
[2025-04-15] MEDS: Amiodarone 200 MG TAB PO SCH (21:25)
[2025-04-16 04:22] LABS: Hematocrit 39.3 % (36.0-47.0); Hemoglobin 12.0 g/dL (12.0-16.0); Mean Corpuscular Hemoglobin 27.5 pg (27.0-31.0); Mean Corpuscular Volume 90.1 fL (78.0-98.0); Platelet Count 238 10x3/uL (130-400); Red Blood Cell (RBC) Count 4.36 mill/uL (4.20-5.40); White Blood Cell (WBC) Count 6.80 10x3/uL (4.8-10.8)
[2025-04-16 06:01] LABS: Anion Gap 15 mmol/L (10-20); BUN (Urea Nitrogen) 17 mg/dL (9.8-20.1); Calc. Creatinine Clearance 95 mL/min (70-130); Calcium 8.3 mg/dL (7.8-10.44); Carbon Dioxide 20 mmol/L (23-31); Chloride 112 mmol/L (98-107); Glucose 82 mg/dL (83-110); Potassium 3.6 mmol/L (3.5-5.1); Sodium 143 mmol/L (136-145)
[2025-04-16] MEDS ORDERED: Heparin 10,000 UNITS/ 10 ML VIAL ONE (06:23)
[2025-04-16] MEDS ORDERED: Adenosine 6 mg (2 mL) VIAL ONE (06:23)
[2025-04-16] MEDS ORDERED: Lidocaine 1% (PF) 30 ML VIAL ONE (06:23)
[2025-04-16] MEDS ORDERED: Nitroglycerin 50 MG/250 ML BOT 250 ML ONE (06:23)
[2025-04-16] MEDS ORDERED: Iopamidol 370 76% 100 ML VIAL ONE (12:57)
[2025-04-16] MEDS ORDERED: Nitroglycerin 0.4 MG TAB (25 Tab Bottle) SL PRN (17:44)
[2025-04-17 04:33] LABS: #Basophils 0.06 10x3/uL (0.0-0.2); #Eosinophils 0.39 10x3/uL (0.0-0.7); #Monocytes 1.00 10x3/uL (0.11-0.59); #Neutrophils 4.35 10x3/uL (1.40-6.50); %Basophils 0.9 % (0.0-1.0); %Eosinophils 5.7 % (0.0-10.0); %Lymphocytes 14.8 % (21.0-51.0); %Monocytes 14.7 % (0.0-10.0); %Neutrophils 63.8 % (42.0-75.0); Hematocrit 39.3 % (36.0-47.0); Hemoglobin 12.0 g/dL (12.0-16.0); Mean Corpuscular Hemoglobin 28.2 pg (27.0-31.0); Mean Corpuscular Volume 92.5 fL (78.0-98.0); Platelet Count 220 10x3/uL (130-400); Red Blood Cell (RBC) Count 4.25 mill/uL (4.20-5.40); White Blood Cell (WBC) Count 6.82 10x3/uL (4.8-10.8)
[2025-04-17 04:53] LABS: Anion Gap 10 mmol/L (10-20); BUN (Urea Nitrogen) 14 mg/dL (9.8-20.1); Calc. Creatinine Clearance 109 mL/min (70-130); Calcium 8.6 mg/dL (7.8-10.44); Carbon Dioxide 23 mmol/L (23-31); Chloride 112 mmol/L (98-107); Glucose 90 mg/dL (83-110); Magnesium 1.9 mg/dL (1.6-2.6); Potassium 4.0 mmol/L (3.5-5.1); Sodium 141 mmol/L (136-145)
[2025-04-17] MEDS: Magnesium Oxide 400 MG TAB PO SCH (09:53)
[2025-04-17 12:51] VITALS: BP 121/74; TEMP 97.6
[2025-04-18] MEDS ORDERED: Dapagliflozin Propanediol 10 MG TAB PO SCH (09:00)
== END 2025-04-17 17:42 | disposition home or self-care (01) | DRG 281 ==
LOC: ERS 10:27 → ERHOLD 14:16 → CCU 18:40 → PCU 04-15 17:07
PROVIDERS: ADMIT Family Medicine; ATTEND Internal Medicine
PROC: 4A023N7 Measurement of Cardiac Sampling and Pressure, Left Heart, Percutaneous Approach (ICD-10-PCS; principal; 2025-04-16)
PROC: B2011ZZ Plain Radiography of Multiple Coronary Arteries using Low Osmolar Contrast (ICD-10-PCS; 2025-04-16)
PROC: B2051ZZ Plain Radiography of Left Heart using Low Osmolar Contrast (ICD-10-PCS; 2025-04-16)
DX: I47.20 Ventricular tachycardia, unspecified (principal); I50.32 Chronic diastolic (congestive) heart failure; I21.4 Non-ST elevation (NSTEMI) myocardial infarction; I48.0 Paroxysmal atrial fibrillation; E78.5 Hyperlipidemia, unspecified; I11.0 Hypertensive heart disease with heart failure; Z88.8 Allergy status to other drugs, medicaments and biological substances; I48.19 Other persistent atrial fibrillation; Z79.01 Long term (current) use of anticoagulants; W01.198A Fall on same level from slipping, tripping and stumbling with subsequent striking against other object, initial encounter; S01.01XA Laceration without foreign body of scalp, initial encounter
CPT/HCPCS: 12002; 36415; 70450; 71045; 80048; 80053; 83735; 83880; 84443; 84484; 85025; 85027; 85610; 85730; 90471; 90715; 93005; 93306; 93458; 93798; 96374; 96375; 96376; 99152; C1769; C1894; G0390; J0153; J0282; J1644; J2250; J3010; J7030; J7070; Q9967

== ENCOUNTER 2025-04-22 09:42 | Inpatient (IN) | payer MEDICARE ==
[2025-04-22 10:37] LABS: ALT (SGPT) 22 U/L (Less than 34); AST (SGOT) 30 U/L (11-34); Albumin 4.3 g/dL (3.1-4.5); Alkaline Phosphatase 63 U/L (40-110); Anion Gap 19 mmol/L (10-20); BUN (Urea Nitrogen) 26 mg/dL (9.8-20.1); Bilirubin, Total 1.1 mg/dL (0.3-1.2); Calc. Creatinine Clearance 0 mL/min (70-130); Calcium 9.8 mg/dL (7.8-10.44); Carbon Dioxide 30 mmol/L (23-31); Chloride 98 mmol/L (98-107); Globulin 2.5 g/dL (2.4-3.5); Glucose 122 mg/dL (83-110); Magnesium 2.0 mg/dL (1.6-2.6); Potassium 3.8 mmol/L (3.5-5.1); Sodium 143 mmol/L (136-145)
[2025-04-22 11:02] LABS: #Basophils 0.04 10x3/uL (0.0-0.2); #Eosinophils 0.33 10x3/uL (0.0-0.7); #Monocytes 0.97 10x3/uL (0.11-0.59); #Neutrophils 7.37 10x3/uL (1.40-6.50); %Basophils 0.4 % (0.0-1.0); %Eosinophils 3.5 % (0.0-10.0); %Lymphocytes 8.6 % (21.0-51.0); %Monocytes 10.1 % (0.0-10.0); %Neutrophils 77.1 % (42.0-75.0); Hematocrit 45.6 % (36.0-47.0); Hemoglobin 14.3 g/dL (12.0-16.0); Mean Corpuscular Hemoglobin 27.9 pg (27.0-31.0); Mean Corpuscular Volume 89.1 fL (78.0-98.0); Platelet Count 340 10x3/uL (130-400); Red Blood Cell (RBC) Count 5.12 mill/uL (4.20-5.40); White Blood Cell (WBC) Count 9.56 10x3/uL (4.8-10.8)
[2025-04-22] MEDS ORDERED: Ondansetron PF 4 MG/2 ML Vial IVP PRN (11:21)
[2025-04-22] MEDS ORDERED: Senokot S 8.6-50 MG TAB PO PRN (11:21)
[2025-04-22] MEDS ORDERED: Acetaminophen 325 MG TAB PO PRN (11:21)
[2025-04-22] MEDS ORDERED: Melatonin 3 MG TAB PO PRN (11:21)
[2025-04-22 12:06] VITALS: BMI 37.8
[2025-04-22] MEDS ORDERED: Electrolyte Replacement Protocol 1 EACH FS SCH (12:15)
[2025-04-22 13:25] LABS: Magnesium 2.1 mg/dL (1.6-2.6)
[2025-04-22] MEDS ORDERED: Magnesium 2 GM/50 ML BAG (IN WATER) ONE (13:26)
[2025-04-22] MEDS: Magnesium 2 GM/50 ML(in water) 2 GM in Premix 1 BAG IVPB SCH (13:36)
[2025-04-22] MEDS ORDERED: Lidocaine 2 gm/D5W 500 ml 500 ML ONE (14:02)
[2025-04-22 15:24] VITALS: BP 100/65
[2025-04-22] MEDS ORDERED: Lidocaine 2 gm/D5W 500 ml 500 ML IVPB SCH (17:15)
[2025-04-22 18:32] VITALS: TEMP 98.1
[2025-04-22] MEDS ORDERED: Famotidine 20 MG TAB PO SCH (21:00)
[2025-04-22] MEDS ORDERED: Famotidine/PF 20 mg/2ml Vial SLOW IVP SCH (21:00)
[2025-04-23] MEDS ORDERED: Furosemide 40 MG TAB PO SCH (07:30)
[2025-04-23] MEDS ORDERED: Metoprolol Succinate XL 25 MG ER.TAB PO SCH (09:00)
[2025-04-23] MEDS ORDERED: Aspirin 81 mg Enteric Coated Tablet PO SCH (09:00)
[2025-04-23] MEDS ORDERED: Dapagliflozin Propanediol 10 MG TAB PO SCH (09:00)
== END 2025-04-22 19:00 | disposition short-term general hospital (02) | DRG 309 ==
LOC: ERS 09:42 → ERHOLD 11:25 → IMCU/EMU 16:13
PROVIDERS: ADMIT Family Medicine; ATTEND Family Medicine
DX: I47.20 Ventricular tachycardia, unspecified (principal); I42.8 Other cardiomyopathies; I50.22 Chronic systolic (congestive) heart failure; I48.0 Paroxysmal atrial fibrillation; E78.5 Hyperlipidemia, unspecified; I10 Essential (primary) hypertension; I49.3 Ventricular premature depolarization; R79.89 Other specified abnormal findings of blood chemistry; Z98.82 Breast implant status; Z98.890 Other specified postprocedural states; Z79.899 Other long term (current) drug therapy; Z88.5 Allergy status to narcotic agent; Z88.8 Allergy status to other drugs, medicaments and biological substances; Z79.82 Long term (current) use of aspirin; Z79.01 Long term (current) use of anticoagulants
CPT/HCPCS: 71045; 80053; 83735; 83880; 84484; 85025; 93005; 94760; J0282; J2002; J3475; J7070

== ENCOUNTER 2025-06-12 21:26 | Inpatient (IN) | payer MEDICARE ==
[2025-06-12 22:30] LABS: #Basophils 0.10 10x3/uL (0.0-0.2); #Eosinophils 0.21 10x3/uL (0.0-0.7); #Monocytes 0.99 10x3/uL (0.11-0.59); #Neutrophils 5.75 10x3/uL (1.40-6.50); %Basophils 1.2 % (0.0-1.0); %Eosinophils 2.5 % (0.0-10.0); %Lymphocytes 16.4 % (21.0-51.0); %Monocytes 11.7 % (0.0-10.0); %Neutrophils 67.8 % (42.0-75.0); Hematocrit 40.9 % (36.0-47.0); Hemoglobin 12.0 g/dL (12.0-16.0); Mean Corpuscular Hemoglobin 24.1 pg (27.0-31.0); Mean Corpuscular Volume 82.1 fL (78.0-98.0); Platelet Count 368 10x3/uL (130-400); Red Blood Cell (RBC) Count 4.98 mill/uL (4.20-5.40); White Blood Cell (WBC) Count 8.47 10x3/uL (4.8-10.8)
[2025-06-12 22:47] LABS: ALT (SGPT) 42 U/L (Less than 34); AST (SGOT) 48 U/L (11-34); Albumin 3.8 g/dL (3.1-4.5); Alkaline Phosphatase 56 U/L (40-110); Anion Gap 18 mmol/L (10-20); BUN (Urea Nitrogen) 25 mg/dL (9.8-20.1); Bilirubin, Total 1.3 mg/dL (0.3-1.2); Calc. Creatinine Clearance 0 mL/min (70-130); Calcium 9.3 mg/dL (7.8-10.44); Carbon Dioxide 18 mmol/L (23-31); Chloride 104 mmol/L (98-107); Globulin 2.6 g/dL (2.4-3.5); Glucose 110 mg/dL (83-110); Potassium 4.1 mmol/L (3.5-5.1); Sodium 136 mmol/L (136-145)
[2025-06-12] MEDS ORDERED: Furosemide 20 MG (2 mL) VIAL ONE (23:47)
[2025-06-12] MEDS ORDERED: Acetaminophen 325 MG TAB PO PRN (23:57)
[2025-06-12] MEDS ORDERED: Ondansetron PF 4 MG/2 ML Vial IVP PRN (23:57)
[2025-06-13 01:14] VITALS: BMI 27.2
[2025-06-13 05:03] LABS: #Basophils 0.10 10x3/uL (0.0-0.2); #Eosinophils 0.25 10x3/uL (0.0-0.7); #Monocytes 1.30 10x3/uL (0.11-0.59); #Neutrophils 5.59 10x3/uL (1.40-6.50); %Basophils 1.1 % (0.0-1.0); %Eosinophils 2.8 % (0.0-10.0); %Lymphocytes 18.9 % (21.0-51.0); %Monocytes 14.5 % (0.0-10.0); %Neutrophils 62.5 % (42.0-75.0); Hematocrit 39.2 % (36.0-47.0); Hemoglobin 11.6 g/dL (12.0-16.0); Mean Corpuscular Hemoglobin 24.1 pg (27.0-31.0); Mean Corpuscular Volume 81.3 fL (78.0-98.0); Platelet Count 357 10x3/uL (130-400); Red Blood Cell (RBC) Count 4.82 mill/uL (4.20-5.40); White Blood Cell (WBC) Count 8.95 10x3/uL (4.8-10.8)
[2025-06-13 05:14] LABS: ALT (SGPT) 44 U/L (Less than 34); AST (SGOT) 58 U/L (11-34); Albumin 3.6 g/dL (3.1-4.5); Alkaline Phosphatase 52 U/L (40-110); Anion Gap 18 mmol/L (10-20); BUN (Urea Nitrogen) 27 mg/dL (9.8-20.1); Bilirubin, Total 1.5 mg/dL (0.3-1.2); Calc. Creatinine Clearance 55 mL/min (70-130); Calcium 9.0 mg/dL (7.8-10.44); Carbon Dioxide 23 mmol/L (23-31); Chloride 102 mmol/L (98-107); Globulin 2.7 g/dL (2.4-3.5); Glucose 100 mg/dL (83-110); Magnesium 1.9 mg/dL (1.6-2.6); Potassium 3.9 mmol/L (3.5-5.1); Sodium 139 mmol/L (136-145)
[2025-06-13] MEDS: Furosemide 20 MG (2 mL) VIAL SLOW IVP SCH (05:33)
[2025-06-13] MEDS: Calcium Carbonate 600 MG + Vit D TAB PO SCH (09:21)
[2025-06-13] MEDS: Aspirin 81 mg Enteric Coated Tablet PO SCH (09:21)
[2025-06-13] MEDS: Dapagliflozin Propanediol 10 MG TAB PO SCH (09:21)
[2025-06-13] MEDS: FLU (Fluad Triv) 25-26 (65UP)PF 45 MCG/0.5 ML Syringe IM ONE (09:22)
[2025-06-13 16:59] VITALS: BP 121/74; TEMP 98
[2025-06-14] MEDS ORDERED: Furosemide 40 MG TAB PO SCH (07:30)
== END 2025-06-13 17:41 | disposition home or self-care (01) | DRG 291 ==
LOC: ERS 21:26 → ERHOLD 23:26 → 2NO 06-13 02:19
PROVIDERS: ADMIT Internal Medicine; ATTEND Student in an Organized Health Care Education/Training Program
DX: I11.0 Hypertensive heart disease with heart failure (principal); I50.23 Acute on chronic systolic (congestive) heart failure; I48.20 Chronic atrial fibrillation, unspecified; R74.01 Elevation of levels of liver transaminase levels; E78.5 Hyperlipidemia, unspecified; G47.33 Obstructive sleep apnea (adult) (pediatric); M19.90 Unspecified osteoarthritis, unspecified site; I42.8 Other cardiomyopathies; E87.70 Fluid overload, unspecified; I5A Non-ischemic myocardial injury (non-traumatic); Z88.5 Allergy status to narcotic agent; Z88.8 Allergy status to other drugs, medicaments and biological substances; Z95.810 Presence of automatic (implantable) cardiac defibrillator; Z98.890 Other specified postprocedural states; Z99.89 Dependence on other enabling machines and devices; Z82.49 Family history of ischemic heart disease and other diseases of the circulatory system; Z79.899 Other long term (current) drug therapy; Z13.6 Encounter for screening for cardiovascular disorders; Z13.1 Encounter for screening for diabetes mellitus; Z00.00 Encounter for general adult medical examination without abnormal findings
CPT/HCPCS: 36415; 71045; 80053; 80061; 83036; 83735; 83880; 84484; 85025; 93005; 94760; 96374; J1940

== ENCOUNTER 2025-06-16 12:16 | Observation (INO) | payer MEDICARE ==
[2025-06-16 13:55] LABS: #Basophils 0.07 10x3/uL (0.0-0.2); #Eosinophils 0.26 10x3/uL (0.0-0.7); #Monocytes 0.98 10x3/uL (0.11-0.59); #Neutrophils 5.87 10x3/uL (1.40-6.50); %Basophils 0.9 % (0.0-1.0); %Eosinophils 3.2 % (0.0-10.0); %Lymphocytes 11.8 % (21.0-51.0); %Monocytes 12.0 % (0.0-10.0); %Neutrophils 71.9 % (42.0-75.0); Hematocrit 42.2 % (36.0-47.0); Hemoglobin 12.8 g/dL (12.0-16.0); Mean Corpuscular Hemoglobin 24.3 pg (27.0-31.0); Mean Corpuscular Volume 80.2 fL (78.0-98.0); Platelet Count 378 10x3/uL (130-400); Red Blood Cell (RBC) Count 5.26 mill/uL (4.20-5.40); White Blood Cell (WBC) Count 8.16 10x3/uL (4.8-10.8)
[2025-06-16 14:18] LABS: ALT (SGPT) 74 U/L (Less than 34); AST (SGOT) 79 U/L (11-34); Albumin 4.2 g/dL (3.1-4.5); Alkaline Phosphatase 64 U/L (40-110); Anion Gap 12 mmol/L (10-20); BUN (Urea Nitrogen) 27 mg/dL (9.8-20.1); Bilirubin, Total 1.4 mg/dL (0.3-1.2); Calc. Creatinine Clearance 0 mL/min (70-130); Calcium 9.8 mg/dL (7.8-10.44); Carbon Dioxide 29 mmol/L (23-31); Chloride 102 mmol/L (98-107); Globulin 2.9 g/dL (2.4-3.5); Glucose 94 mg/dL (83-110); Lipase 37 U/L (8-78); Potassium 3.8 mmol/L (3.5-5.1); Sodium 139 mmol/L (136-145)
[2025-06-16] MEDS ORDERED: Acetaminophen 325 MG TAB PO PRN (15:56)
[2025-06-16] MEDS ORDERED: Senokot S 8.6-50 MG TAB PO PRN (15:56)
[2025-06-16 18:29] VITALS: BMI 27.1
[2025-06-17] MEDS: Melatonin 3 MG TAB PO PRN (00:42)
[2025-06-17] MEDS: Cyclobenzaprine 10 MG TAB PO SCH (03:48)
[2025-06-17] MEDS: Furosemide 40 MG (4 mL) VIAL SLOW IVP SCH (05:38)
[2025-06-17 05:45] LABS: #Basophils 0.06 10x3/uL (0.0-0.2); #Eosinophils 0.28 10x3/uL (0.0-0.7); #Monocytes 0.95 10x3/uL (0.11-0.59); #Neutrophils 4.67 10x3/uL (1.40-6.50); %Basophils 0.8 % (0.0-1.0); %Eosinophils 3.9 % (0.0-10.0); %Lymphocytes 15.9 % (21.0-51.0); %Monocytes 13.4 % (0.0-10.0); %Neutrophils 65.9 % (42.0-75.0); Hematocrit 41.9 % (36.0-47.0); Hemoglobin 12.2 g/dL (12.0-16.0); Mean Corpuscular Hemoglobin 23.6 pg (27.0-31.0); Mean Corpuscular Volume 81.2 fL (78.0-98.0); Platelet Count 351 10x3/uL (130-400); Red Blood Cell (RBC) Count 5.16 mill/uL (4.20-5.40); White Blood Cell (WBC) Count 7.10 10x3/uL (4.8-10.8)
[2025-06-17 06:13] LABS: Anion Gap 16 mmol/L (10-20); BUN (Urea Nitrogen) 23 mg/dL (9.8-20.1); Calc. Creatinine Clearance 68 mL/min (70-130); Calcium 9.9 mg/dL (7.8-10.44); Carbon Dioxide 29 mmol/L (23-31); Chloride 101 mmol/L (98-107); Glucose 105 mg/dL (83-110); Magnesium 1.8 mg/dL (1.6-2.6); Potassium 3.7 mmol/L (3.5-5.1); Sodium 142 mmol/L (136-145)
[2025-06-17] MEDS: Metoprolol Succinate XL 25 MG ER.TAB PO SCH (09:42)
[2025-06-17] MEDS: Amiodarone 200 MG TAB PO SCH (09:43)
[2025-06-17] MEDS: Dapagliflozin Propanediol 10 MG TAB PO SCH (09:43)
[2025-06-17] MEDS: Aspirin 81 mg Enteric Coated Tablet PO SCH (09:43)
[2025-06-17 11:05] VITALS: BP 144/81; TEMP 98.4
[2025-06-17] MEDS: Ondansetron PF 4 MG/2 ML Vial IVP PRN (11:08)
== END 2025-06-17 15:00 | disposition home or self-care (01) ==
LOC: ERS 12:16 → OBS 16:09
PROVIDERS: ADMIT Family Medicine; ATTEND Internal Medicine
DX: I50.23 Acute on chronic systolic (congestive) heart failure (principal); I48.91 Unspecified atrial fibrillation; R79.89 Other specified abnormal findings of blood chemistry; Z79.01 Long term (current) use of anticoagulants; Z86.79 Personal history of other diseases of the circulatory system; Z79.899 Other long term (current) drug therapy; Z88.5 Allergy status to narcotic agent; Z88.0 Allergy status to penicillin; Z79.82 Long term (current) use of aspirin
CPT/HCPCS: 71045; 80048; 80053; 82728; 83690; 83735; 83880; 84484 ×2; 85025 ×2; 93005; 97139; 99285; J1940; J2405; 36415; 96374; 96375; G0378

== ENCOUNTER 2025-06-30 11:00 | Inpatient (IN) | payer MEDICARE ==
[2025-06-30 11:42] LABS: #Basophils 0.08 10x3/uL (0.0-0.2); #Eosinophils 0.24 10x3/uL (0.0-0.7); #Monocytes 0.81 10x3/uL (0.11-0.59); #Neutrophils 5.56 10x3/uL (1.40-6.50); %Basophils 1.1 % (0.0-1.0); %Eosinophils 3.2 % (0.0-10.0); %Lymphocytes 11.0 % (21.0-51.0); %Monocytes 10.8 % (0.0-10.0); %Neutrophils 73.8 % (42.0-75.0); Hematocrit 42.1 % (36.0-47.0); Hemoglobin 13.0 g/dL (12.0-16.0); Mean Corpuscular Hemoglobin 24.1 pg (27.0-31.0); Mean Corpuscular Volume 78.0 fL (78.0-98.0); Platelet Count 376 10x3/uL (130-400); Red Blood Cell (RBC) Count 5.40 mill/uL (4.20-5.40); White Blood Cell (WBC) Count 7.53 10x3/uL (4.8-10.8)
[2025-06-30 12:01] LABS: ALT (SGPT) 28 U/L (Less than 34); AST (SGOT) 32 U/L (11-34); Albumin 3.8 g/dL (3.1-4.5); Alkaline Phosphatase 57 U/L (40-110); Anion Gap 17 mmol/L (10-20); BUN (Urea Nitrogen) 26 mg/dL (9.8-20.1); Bilirubin, Total 1.3 mg/dL (0.3-1.2); Calc. Creatinine Clearance 0 mL/min (70-130); Calcium 9.3 mg/dL (7.8-10.44); Carbon Dioxide 24 mmol/L (23-31); Chloride 104 mmol/L (98-107); Globulin 2.6 g/dL (2.4-3.5); Glucose 102 mg/dL (83-110); Magnesium 2.0 mg/dL (1.6-2.6); Potassium 4.5 mmol/L (3.5-5.1); Sodium 140 mmol/L (136-145)
[2025-06-30] MEDS ORDERED: Furosemide 40 MG (4 mL) VIAL ONE ×2 (12:03→14:54)
[2025-06-30] MEDS ORDERED: Aspirin Chewable 81 MG TAB ONE (12:04)
[2025-06-30] MEDS ORDERED: Nitroglycerin 0.4 MG TAB (25 Tab Bottle) ONE (12:07)
[2025-06-30] MEDS ORDERED: Ondansetron PF 4 MG/2 ML Vial IVP PRN (14:42)
[2025-06-30 17:57] VITALS: BMI 28.2
[2025-06-30] MEDS: Nitroglycerin 2% Ointment 1 INCH/1 GM Packet TOP SCH (20:59)
[2025-07-01 04:51] LABS: #Basophils 0.07 10x3/uL (0.0-0.2); #Eosinophils 0.43 10x3/uL (0.0-0.7); #Monocytes 0.90 10x3/uL (0.11-0.59); #Neutrophils 4.44 10x3/uL (1.40-6.50); %Basophils 1.0 % (0.0-1.0); %Eosinophils 6.1 % (0.0-10.0); %Lymphocytes 16.4 % (21.0-51.0); %Monocytes 12.9 % (0.0-10.0); %Neutrophils 63.5 % (42.0-75.0); Hematocrit 40.8 % (36.0-47.0); Hemoglobin 12.3 g/dL (12.0-16.0); Mean Corpuscular Hemoglobin 23.6 pg (27.0-31.0); Mean Corpuscular Volume 78.3 fL (78.0-98.0); Platelet Count 335 10x3/uL (130-400); Red Blood Cell (RBC) Count 5.21 mill/uL (4.20-5.40); White Blood Cell (WBC) Count 7.00 10x3/uL (4.8-10.8)
[2025-07-01 05:02] LABS: ALT (SGPT) 23 U/L (Less than 34); AST (SGOT) 24 U/L (11-34); Albumin 3.5 g/dL (3.1-4.5); Alkaline Phosphatase 51 U/L (40-110); Anion Gap 15 mmol/L (10-20); BUN (Urea Nitrogen) 24 mg/dL (9.8-20.1); Bilirubin, Total 1.4 mg/dL (0.3-1.2); Calc. Creatinine Clearance 60 mL/min (70-130); Calcium 9.1 mg/dL (7.8-10.44); Carbon Dioxide 27 mmol/L (23-31); Chloride 101 mmol/L (98-107); Globulin 2.4 g/dL (2.4-3.5); Glucose 96 mg/dL (83-110); Magnesium 1.8 mg/dL (1.6-2.6); Potassium 3.8 mmol/L (3.5-5.1); Sodium 139 mmol/L (136-145)
[2025-07-01] MEDS: Furosemide 40 MG (4 mL) VIAL SLOW IVP SCH (06:31)
[2025-07-01] MEDS: Acetaminophen 325 MG TAB PO PRN (06:47)
[2025-07-01] MEDS: Amiodarone 200 MG TAB PO SCH (09:45)
[2025-07-01] MEDS: Dapagliflozin Propanediol 10 MG TAB PO SCH (09:45)
[2025-07-01] MEDS: Aspirin 81 mg Enteric Coated Tablet PO SCH (09:46)
[2025-07-01] MEDS: Calcium Citrate 950 MG (200MG) TAB PO SCH (09:46)
[2025-07-01] MEDS: Metoprolol Succinate XL 25 MG ER.TAB PO SCH (09:46)
[2025-07-01] MEDS: Ketorolac Tromethamine 30 MG (1 mL) VIAL IVP SCH (22:34)
[2025-07-02 05:04] LABS: #Basophils 0.05 10x3/uL (0.0-0.2); #Eosinophils 0.28 10x3/uL (0.0-0.7); #Monocytes 0.87 10x3/uL (0.11-0.59); #Neutrophils 4.27 10x3/uL (1.40-6.50); %Basophils 0.8 % (0.0-1.0); %Eosinophils 4.3 % (0.0-10.0); %Lymphocytes 14.9 % (21.0-51.0); %Monocytes 13.5 % (0.0-10.0); %Neutrophils 66.3 % (42.0-75.0); Hematocrit 38.7 % (36.0-47.0); Hemoglobin 11.5 g/dL (12.0-16.0); Mean Corpuscular Hemoglobin 23.5 pg (27.0-31.0); Mean Corpuscular Volume 79.1 fL (78.0-98.0); Platelet Count 315 10x3/uL (130-400); Red Blood Cell (RBC) Count 4.89 mill/uL (4.20-5.40); White Blood Cell (WBC) Count 6.44 10x3/uL (4.8-10.8)
[2025-07-02 05:32] LABS: Anion Gap 12 mmol/L (10-20); BUN (Urea Nitrogen) 28 mg/dL (9.8-20.1); Calc. Creatinine Clearance 50 mL/min (70-130); Calcium 8.9 mg/dL (7.8-10.44); Carbon Dioxide 27 mmol/L (23-31); Chloride 101 mmol/L (98-107); Glucose 93 mg/dL (83-110); Magnesium 1.8 mg/dL (1.6-2.6); Potassium 3.3 mmol/L (3.5-5.1); Sodium 137 mmol/L (136-145)
[2025-07-03] MEDS: Furosemide 40 MG TAB PO SCH (08:29)
[2025-07-03] MEDS: Spironolactone 25 MG TAB PO SCH (08:29)
[2025-07-03 11:56] VITALS: BP 117/79; TEMP 98.3
== END 2025-07-03 12:09 | disposition home health service (06) | DRG 291 ==
LOC: ERS 11:00 → SUATTDRO 11:00 → OBS 14:42 → OBSVTOIN 07-01 15:59
PROVIDERS: ADMIT Internal Medicine; ATTEND Internal Medicine
DX: I11.0 Hypertensive heart disease with heart failure (principal); I50.23 Acute on chronic systolic (congestive) heart failure; I24.89 Other forms of acute ischemic heart disease; I42.8 Other cardiomyopathies; E78.5 Hyperlipidemia, unspecified; I48.91 Unspecified atrial fibrillation; Z95.810 Presence of automatic (implantable) cardiac defibrillator; Z79.899 Other long term (current) drug therapy; Z79.01 Long term (current) use of anticoagulants
CPT/HCPCS: 36415; 71045; 80048; 80053; 83735; 83880; 84484; 85025; 93005; 93798; 94760; 96374; 96376; 97139; G0378; J1885; J1940

== ENCOUNTER 2025-07-24 12:54 | Outpatient (CLI) | payer MEDICARE | END 2025-07-24 12:55 | disposition home or self-care (01) | LOC: BICRAD 12:54 | PROVIDERS: ATTEND Family Medicine | DX: M54.50 Low back pain, unspecified (principal); M25.551 Pain in right hip; M41.9 Scoliosis, unspecified; M51.86 Other intervertebral disc disorders, lumbar region; M47.816 Spondylosis without myelopathy or radiculopathy, lumbar region; M51.87 Other intervertebral disc disorders, lumbosacral region | CPT/HCPCS: 72100; 72220 ==